=== PATIENT | male | born 2005 | race Caucasian/White ===

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

== ENCOUNTER 2023-07-21 16:19 | Outpatient (REF) | payer BC, SELFPAY ==
[2023-07-23 13:42] LABS: Chlamydia Result Negative (Negative); GC Result Negative (Negative)
== END 2023-07-21 16:20 | disposition home or self-care (01) ==
LOC: LBN 16:19
PROVIDERS: PCP Pediatrics; Referring Provider Student in an Organized Health Care Education/Training Program; Visit Provider Student in an Organized Health Care Education/Training Program
DX: R30.0 Dysuria (principal)
CPT/HCPCS: 87491; 87591